=== PATIENT | female | born 1960 | race Caucasian/White ===

== ENCOUNTER 2017-10-19 06:46 | Day surgery (SDC) | payer BC ==
[~2017-10-19] VITALS: Ht 157.5 cm; Wt 87.5 kg
[2017-10-19] MEDS ORDERED: CLINDAMYCIN PHOS 600 MG/ D5W 50 ML PREMIX IV ONE (07:00)
[2017-10-19 07:50] LABS: PROTHROMBIN TIME 10.4 SECS (9.5-12.5)
[2017-10-19] MEDS ORDERED: ROCURONIUM BROMIDE 10 MG/ML (ZEMURON) IV ONE (08:55)
[2017-10-19] MEDS ORDERED: NS 1000 ML BAG IV ONE (08:55)
[2017-10-19] MEDS ORDERED: NEOSTIGMINE METHYLSULFATE 1 MG/ML, 10 ML VIAL IVP ONE (08:55)
[2017-10-19] MEDS ORDERED: HEPARIN SODIUM,PORCINE 5000 UNITS/ML VIAL IV ONE (08:55)
[2017-10-19] MEDS ORDERED: PROPOFOL 200MG/ 20ML VIAL (DIPRIVAN) IV ONE (08:55)
[2017-10-19] MEDS ORDERED: GLYCOPYRROLATE 0.2 MG/ML VIAL IJ ONE (08:55)
[2017-10-19] MEDS ORDERED: SEVOFLURANE 15 MIN GAS INH ONE (08:55)
[2017-10-19] MEDS ORDERED: PHENYLEPHRINE HCL 10 MG/ML VIAL (NEOSYNEPHRINE) IV ONE (08:55)
[2017-10-19] MEDS ORDERED: ONDANSETRON HCL 4 MG/2 ML VIAL IVP ONE (08:55)
[2017-10-19] MEDS ORDERED: MIDAZOLAM HCL 5 MG/5 ML VIAL IVP ONE (08:55)
[2017-10-19] MEDS ORDERED: NS IRRIG SOLN 1000 ML IR ONE (08:55)
[2017-10-19] MEDS ORDERED: fentaNYL CITRATE/PF 100 MCG/2 ML AMP IVP ONE (08:55)
[2017-10-19] MEDS ORDERED: IOHEXOL 50 ML IV ONE (09:25)
[2017-10-19] MEDS ORDERED: LR 1,000 ML IV SCH (09:33)
[2017-10-19] MEDS ORDERED: METOCLOPRAMIDE HCL 10 MG/2 ML VIAL IVP PRN (09:45)
[2017-10-19] MEDS ORDERED: MORPHINE 4 MG/ML INJ. SYRINGE IVP PRN ×3 (09:45)
[2017-10-19] MEDS ORDERED: D5/0.45 NS 1,000 ML IV SCH (10:28)
[2017-10-19] MEDS ORDERED: HYDROcodone/ACETAMIN 5-325 MG TAB (NORCO/ VICODIN) PO PRN ×2 (10:30)
[2017-10-19] MEDS ORDERED: HYDROmorphone 1 MG INJ. 1 MG/ML AMPUL IVP PRN (10:30)
[2017-10-19] MEDS ORDERED: MORPHINE 4 MG/ML INJ. SYRINGE ONE (11:07)
[2017-10-19] MEDS ORDERED: HYDROcodone/ACETAMIN 5-325 MG TAB (NORCO/ VICODIN) ONE (11:49)
[2017-10-19 14:25] VITALS: BP_SYST 156
== END 2017-10-19 14:10 | disposition home or self-care (01) ==
LOC: SDS 06:46 → SMU 07:51 → SDS 14:10
PROVIDERS: ATTEND Colon & Rectal Surgery
DX: K80.10 Calculus of gallbladder with chronic cholecystitis without obstruction (principal); J30.9 Allergic rhinitis, unspecified; Z79.01 Long term (current) use of anticoagulants; I82.409 Acute embolism and thrombosis of unspecified deep veins of unspecified lower extremity; I10 Essential (primary) hypertension
CPT/HCPCS: 36415; 47562; 85610; 85730; 88304; 93005; C1727; C1758; J1644; J2250; J2270; J2370; J2405; J2704; J2710; J3010; J3490 ×2; J7030; Q9967